=== PATIENT | male | born 1995 | race Two or more races ===

== ENCOUNTER 2024-10-14 14:25 | Emergency (ER) | payer OTHER ==
[~2024-10-14] VITALS: Ht 165.1 cm; Wt 68.0 kg
[2024-10-14] MEDS ORDERED: IBU400 MG PO (18:01)
== END 2024-10-14 18:19 | disposition home or self-care (01) ==
LOC: ER 14:28
DX: S76.112A Strain of left quadriceps muscle, fascia and tendon, initial encounter (principal); W19.XXXA Unspecified fall, initial encounter; Y93.66 Activity, soccer; Y92.89 Other specified places as the place of occurrence of the external cause; Y99.9 Unspecified external cause status